=== PATIENT | male | born 1970 | race Caucasian/White ===

== ENCOUNTER 2017-10-18 09:25 | Emergency (ER) | payer MEDICAID ==
--- NOTE | 2017-10-18 10:18 | EDPHY ---
H & P Time Seen by Provider: 10/18/17 10:04 HPI/ROS: CHIEF COMPLAINT: Disoriented HISTORY OF PRESENT ILLNESS: Brought in by son with disorientation for 2 weeks. History of IV heroin abuse, none since yesterday or the day before. Does not drink alcohol. Apparently moved from [place] 1 year ago and just got a refill of his thyroid medication last week. Patient is complaint primarily of nausea and vomiting and decreased appetite. Associated with mild headache. He can't state how long this has lasted. REVIEW OF SYSTEMS: Eye: no change in vision ENT: no sore throat Cardiac: no chest pain or syncope Pulmonary: no cough or SOB Abdomen: HPI no diarrhea Musculoskeletal: no back pain Skin: no rash Neuro: Mild headache which is diffuse and not thunderclap in onset or worst of life Constitutional: no fever : no urinary symptoms A comprehensive 10 point review of systems is otherwise negative aside from elements mentioned in the history of present illness. PAST MEDICAL HISTORY: Graves disease Social history: Heroin use General Appearance: Alert and conversant, cooperative. Eyes: No scleral icterus. ENT, Mouth: Dry mucous membranes. Respiratory: Normal respiratory effort, breath sounds equal, lungs are clear to auscultation. Cardiovascular: Regular rate and rhythm. Gastrointestinal: Abdomen is soft and non tender. Neurological: Alert, oriented to [place] and the emergency department and 2017. Normally conversant. Face symmetric, normal movement and sensation in all extremities. Skin: Warm and dry, no rashes. Track patel on both arms. Musculoskeletal: No peripheral edema and no joint swelling. Psychiatric: Not agitated. Emergency Department course/MDM: Noncontrast head CT for altered mental status and headache. EKG and labs to include chemistry panel. Re-evaluated after IV fluids, feels better. He is yawning. He thinks he is having withdrawal from IV heroin. Patient clinically and by laboratory was mildly dehydrated. I think it is unlikely he is having delirium tremens or seizure or stroke intracranial mass or bleed or DELIVERY SPECIALIST infection. I do not think he has a thyroid emergency. Also seen by case management. Smoking Status: Current every day smoker Constitutional: Initial Vital Signs Temperature (C) 36.7 C 10/18/17 09:29 Heart Rate 63 10/18/17 09:29 Respiratory Rate 18 10/18/17 09:29 Blood Pressure 122/78 H 10/18/17 09:29 O2 Sat (%) 100 10/18/17 09:29 O2 Delivery Mode Room Air Allergies/Adverse Reactions: No Known Allergies Allergy (Unverified 10/18/17 09:27) Home Medications: Medication Instructions Recorded Buspar (*) 10/18/17 Levothyroxine 10/18/17 Medical Decision Making - Diagnostics EKG Interpretation: 12-lead EKG interpreted by me; official reading is in trace master. My interpretation is sinus rhythm rate 54 with nonspecific lateral T-wave flattening. Imaging Results: Imaging Impressions Head CT 10/18/17 10:16 Impression: Motion limited study with no acute intracranial findings. Findings discussed with Dr. Tuan Vaughan on October 18, 2017 at 1102 hours. Differential Diagnosis: Differential diagnosis considered for altered mental status including but not limited to hypoglycemia, infectious process, electrolyte abnormality, head injury, DELIVERY SPECIALIST infection, and intoxicants. - Data Points Laboratory Results: Laboratory Results 10/18/17 10:25 10/18/17 10:25 10/18/17 10/18/17 10/18/17 10:25 10:25 10:25 WBC 15.25 10^3/uL H 10^3/uL (3.80-9.50) RBC 5.51 10^6/uL 10^6/uL (4.40-6.38) Hgb 17.4 g/dL g/dL (13.7-17.5) Hct 47.0 % % (40.0-51.0) MCV 85.3 fL fL (81.5-99.8) MCH 31.6 pg pg (27.9-34.1) MCHC 37.0 g/dL H g/dL (32.4-36.7) RDW 15.2 % % (11.5-15.2) Plt Count 362 10^3/uL 10^3/uL (150-400) MPV 9.2 fL fL (8.7-11.7) Neut % (Auto) 86.1 % H % (39.3-74.2) Lymph % (Auto) 9.0 % L % (15.0-45.0) Roberts % (Auto) 4.1 % L % (4.5-13.0) Eos % (Auto) 0.0 % L % (0.6-7.6) Baso % (Auto) 0.3 % % (0.3-1.7) Nucleat RBC Rel Count 0.0 % % (0.0-0.2) Absolute Neuts (auto) 13.13 10^3/uL H 10^3/uL (1.70-6.50) Absolute Lymphs (auto) 1.37 10^3/uL 10^3/uL (1.00-3.00) Absolute Monos (auto) 0.63 10^3/uL 10^3/uL (0.30-0.80) Absolute Eos (auto) 0.00 10^3/uL L 10^3/uL (0.03-0.40) Absolute Basos (auto) 0.05 10^3/uL 10^3/uL (0.02-0.10) Absolute Nucleated RBC 0.00 10^3/uL 10^3/uL (0-0.01) Immature Gran % 0.5 % % (0.0-1.1) Immature Gran # 0.07 10^3/uL 10^3/uL (0.00-0.10) Sodium 142 mEq/L mEq/L (134-144) Potassium 3.4 mEq/L L mEq/L (3.5-5.2) Chloride 105 mEq/L mEq/L (97-110) Carbon Dioxide 17 mEq/l L mEq/l (22-31) Anion Gap 20 mEq/L H mEq/L (8-16) BUN 26 mg/dL H mg/dL (7-23) Creatinine 0.9 mg/dL mg/dL (0.7-1.3) Estimated GFR > 60 Glucose 115 mg/dL H mg/dL (70-100) Calcium 10.4 mg/dL mg/dL (8.5-10.4) Ethyl Alcohol < 10 mg/dL mg/dL (0-10) Medications Given: Discontinued Medications Sodium Chloride (Ns) 1,000 mls @ 0 mls/hr IV EDNOW ONE; Wide Open PRN Reason: Protocol Stop: 10/18/17 11:17 Last Admin: 10/18/17 11:29 Dose: 1,000 mls Sodium Chloride (Ns) 1,000 mls @ 0 mls/hr IV EDNOW ONE; Wide Open PRN Reason: Protocol Stop: 10/18/17 11:17 Last Admin: 10/18/17 11:30 Dose: 1,000 mls Departure - Departure Disposition: Home, Routine, Self-Care Clinical Impression: Dehydration Condition: Good Instructions: Dehydration (ED) Additional Instructions: Please follow up with [facility]: You have a prescription for your thyroid medication (LEVOTHYROXINE) ready to machine pecan picker at: [place] [phone] Referrals: NONE *PRIMARY CARE P,. [Primary Care Provider] - As per Instructions [facility],. [Clinic] - As per Instructions
[2017-10-18 10:30] LABS: % IMMATURE GRANULYOCYTES 0.5 % (0.0-1.1); ABSOLUTE IMMATURE GRANULOCYTES 0.07 10^3/uL (0.00-0.10); ADD DIFF? NO; ADD MORPH? NO; ADD SCAN? NO; ATYPICAL LYMPHOCYTE FLAG 0 (0-99); FRAGMENT RBC FLAG 0 (0-99); HEMOGLOBIN 17.4 g/dL (13.7-17.5); LEFT SHIFT FLG 0 (0-99); LIPEMIA HEMOLYSIS FLAG 90 (0-99); MEAN CELL HEMOGLOBIN 31.6 pg (27.9-34.1); MEAN CELL VOLUME 85.3 fL (81.5-99.8); MEAN PLATELET VOLUME 9.2 fL (8.7-11.7); PLATELET CLUMPS FLAG 40 (0-99); PLATELET COUNT 362 10^3/uL (150-400); RED BLOOD CELL COUNT 5.51 10^6/uL (4.40-6.38); RED CELL DISTRIBUTION WIDTH 15.2 % (11.5-15.2)
[2017-10-18 10:44] LABS: ANION GAP 20 mEq/L (8-16); CALCIUM 10.4 mg/dL (8.5-10.4); CARBON DIOXIDE 17 mEq/l (22-31); CHLORIDE 105 mEq/L (97-110); CREATININE 0.9 mg/dL (0.7-1.3); GLOMERULAR FILTRATION RATE > 60; GLUCOSE 115 mg/dL (70-100); POTASSIUM 3.4 mEq/L (3.5-5.2); SODIUM 142 mEq/L (134-144)
--- NOTE | 2017-10-18 10:57 | CPEKG ---
Heart Rate: 54 RR Interval: 1111 P-R Interval: 156 QRSD Interval: 78 QT Interval: 420 QTC Interval: 398 P Derry: 73 QRS Derry: 87 T Wave Derry: 203 EKG Severity - ABNORMAL ECG - EKG Impression: SINUS ARRHYTHMIA, RATE 46-61 EKG Impression: NONSPECIFIC T ABNORMALITIES, LATERAL LEADS Electronically Signed By: Tuan Vaughan 18-Oct-2017 12:56:43
[2017-10-18] MEDS ORDERED: NS 1,000 ML IV ONE ×2 (11:16)
[2017-10-18 11:35] LABS: ETHANOL SERUM < 10 mg/dL (0-10)
[2017-10-18 12:19] VITALS: RESP 18; TEMP 98.4; O2SAT 95
[2017-10-18 12:55] VITALS: BP 122/80; PULSE 52
--- NOTE | 2017-10-18 13:05 | ASMTCMCOM ---
CM Note CM Note Notes: Patient presents to the ER accompanied by his son Bryant with c/o disorientation, confusion and weakness. Per Genia GARCIA's conversation with Bryant, pat has history of Graves disease, opioid dependency, and has likely been off his thyroid medication for some time. Patient evidently had an appointment at [facility] in the recent past. I have spoken with Suad at [facility] and confirmed that patient was seen at the clinic last week 10/11/17. A prescription for Levothyroxine 25 mcg, # 90 was called in to the [facility] and [place] . Patient also received a FLU shot and Tetanus at this appointment. Patient also admitted to chronic opioid use and inqured about "resuming Suboxone" as patient had evidently been on it in the past. Pa I have called [facility] and confirmed that patient's prescription for Synthroid is available for last picker. Patient's son Bryant is present at patient's discharge from the ER. I have provided them with contact information for [facility] clinic and 24 hour crisis/addiction services, as well as [facility]" program for harm reduction resources. Date Signed: 10/18/2017 10:34 AM Electronically Signed By:Laura Richards RN
== END 2017-10-18 13:04 | disposition home or self-care (01) ==
DX: E86.0 Dehydration (principal); F17.200 Nicotine dependence, unspecified, uncomplicated; E86.9 Volume depletion, unspecified
CPT/HCPCS: G0480